=== PATIENT | female | born 1980 | race Two or more races ===

== ENCOUNTER 2018-05-01 15:20 | Emergency (ER) | payer OTHER ==
[~2018-05-01] VITALS: Ht 165.1 cm; Wt 54.4 kg
[~2018-05-01 15:20] MED LIST: CLEOCIN HCL150 MG; KETOROLAC TROME10 MG; [UNRECOGNIZED DRUG - OTHER]
== END 2018-05-01 16:25 | disposition home or self-care (01) ==
LOC: ER 15:20
DX: S60.372A Other superficial bite of left thumb, initial encounter (principal); W55.01XA Bitten by cat, initial encounter; Y93.89 Activity, other specified; Y92.89 Other specified places as the place of occurrence of the external cause; Y99.8 Other external cause status